=== PATIENT | female | born 2000 | race Caucasian/White ===

== ENCOUNTER 2024-05-06 00:11 | Emergency (ER) | payer SELFPAY | END 2024-05-06 00:45 | disposition home or self-care (01) | LOC: MERGE 00:11 → MW.ED 00:11 | DX: O20.9 Hemorrhage in early pregnancy, unspecified (principal); O99.611 Diseases of the digestive system complicating pregnancy, first trimester; K21.9 Gastro-esophageal reflux disease without esophagitis; Z3A.09 9 weeks gestation of pregnancy; Z79.899 Other long term (current) drug therapy | CPT/HCPCS: 99283 ==